=== PATIENT | female | born 1955 | race Caucasian/White ===

== ENCOUNTER 2024-08-21 09:11 | Emergency (ER) | payer MEDICARE ==
[~2024-08-21] VITALS: Ht 162.6 cm; Wt 78.9 kg
[2024-08-21 09:15] VITALS: TEMP 98.4
[2024-08-21 09:38] LABS: BASOPHILS # (AUTO) 0.1 (0.0-0.1); BASOPHILS % 0.7 % (0.0-1.0); EOSINOPHILS # (AUTO) 0.4 (0.0-0.4); EOSINOPHILS % 3.5 % (0.0-6.0); HEMATOCRIT 50.2 % (34.2-44.1); HEMOGLOBIN 15.9 g/dL (12.0-16.0); LYMPHOCYTES # (AUTO) 3.1 (1.0-3.2); LYMPHOCYTES % 27.9 % (18.0-39.1); MEAN CORPUSCULAR HEMOGLOBIN 30.6 pg (28-32); MEAN CORPUSCULAR HGB CONC 31.7 g/dL (31-35); MEAN CORPUSCULAR VOLUME 96.5 fL (81-99); MONOCYTES % 8.9 % (4.4-11.3); NEUTROPHILS # (AUTO) 6.4 (2.1-6.9); NEUTROPHILS % 58.5 % (38.7-80.0); PLATELET COUNT 240 x10e3/uL (140-360); WHITE BLOOD COUNT 11.01 x10e3/uL (4.8-10.8)
[2024-08-21] MEDS: SODIUM CHLORIDE 0.9% 1000ML 1,000 ML IV STA (09:47)
[2024-08-21] MEDS: DIAZEPAM 2 MG TAB PO ONE (09:48)
[2024-08-21] MEDS: MECLIZINE HCL 12.5 MG TAB PO ONE (09:48)
[2024-08-21 09:54] LABS: INR 2.41; PROTHROMBIN TIME 27.4 seconds (11.9-14.5)
[2024-08-21 09:55] LABS: PARTIAL THROMBOPLASTIN TIME 38.3 seconds (23.8-35.5)
[2024-08-21 10:03] LABS: ALBUMIN 4.2 g/dL (3.5-5.0); ALBUMIN/GLOBULIN RATIO 1.4 (0.8-2.0); ANION GAP 12.5 mmol/L (8-16); BILIRUBIN,TOTAL 0.5 mg/dL (0.2-1.2); CALCIUM 10.2 mg/dL (8.4-10.2); CREATININE, SERUM 0.72 mg/dL (0.57-1.11); POTASSIUM 4.5 mmol/L (3.5-5.1); TOTAL PROTEIN 7.3 g/dL (6.5-8.1)
[2024-08-21 10:08] LABS: TROPONIN I 0.011 ng/mL (0-0.300)
[2024-08-21] MEDS ORDERED: MECLIZINE HCL25 MG PO (11:27)
[2024-08-21 12:02] VITALS: PULSE 60; RESP 15; O2SAT 96
== END 2024-08-21 12:05 | disposition home or self-care (01) ==
LOC: ER 09:21
DX: H81.399 Other peripheral vertigo, unspecified ear (principal); I10 Essential (primary) hypertension; I48.91 Unspecified atrial fibrillation; E03.9 Hypothyroidism, unspecified; F41.9 Anxiety disorder, unspecified; R94.31 Abnormal electrocardiogram [ECG] [EKG]; F17.210 Nicotine dependence, cigarettes, uncomplicated
CPT/HCPCS: 36415; 70450; 71045; 80053; 82550; 83735; 84484; 85025; 85610; 85730; 93005; 99284; J7030; J8597